=== PATIENT | female | born 1965 ===

== ENCOUNTER 2016-12-24 16:08 | Emergency (ER) | payer OTHER, MEDICAID ==
[2016-12-24 16:35] VITALS: BP 128/42; PULSE 65; RESP 16; TEMP 97.8; O2SAT 99
--- NOTE | 2016-12-24 16:54 | ED PDOC ---
HPI: Back Time Seen by Provider: 12/24/16 16:20 Chief Complaint (Nursing): Back Pain Chief Complaint (Provider): Low back pain after moving mattress at work last night History Per: Patient History/Exam Limitations: no limitations Onset/Duration Of Symptoms: Hrs Current Symptoms Are (Timing): Still Present Full Body Front + Back: 1 - Back pain Quality Of Discomfort: Dull Severity: Mild Pain Scale Rating Of: 2 Previous Symptoms: None Associated Symptoms: None Additional Complaint(s): Pt improved after aleve last night. PT states she was told my employer to be evaluated to return to work. Pt denies numbness/tingling. No bladder or bowel incontinence. Past Medical History Reviewed: Historical Data, Nursing Documentation, Vital Signs Vital Signs: Last Vital Signs Temp 97.8 F 12/24/16 16:30 Pulse 65 12/24/16 16:30 Resp 16 12/24/16 16:30 BP 128/42 L 12/24/16 16:30 Pulse Ox 99 12/24/16 16:30 - Medical History PMH: Gastritis, Rheumatoid Arthritis - Surgical History Surgical History: Appendectomy - Family History Family History: States: Unknown Family Hx - Living Arrangements Living Arrangements: With Family - Social History Current smoker - smoking cessation education provided: No Alcohol: None Drugs: Denies - Immunization History Hx Tetanus Toxoid Vaccination: No Hx Influenza Vaccination: Yes Hx Pneumococcal Vaccination: No - Home Medications Home Medications: Ambulatory Orders Medication Instructions Recorded Famotidine [Pepcid] 20 mg PO BID #20 tab 03/21/16 Naproxen [Anaprox] 275 mg PO DAILY PRN #20 tab 03/21/16 diaZEpam [Valium] 5 mg PO TID #21 tab 03/21/16 predniSONE [Prednisone] 20 mg PO BID #10 tab 03/21/16 - Allergies Allergies/Adverse Reactions: Allergies Allergy/AdvReac Type Severity Reaction Status Date / Time No Known Allergies Allergy Verified 12/24/16 16:30 Review of Systems ROS Statement: Except As Marked, All Systems Reviewed And Found Negative Constitutional: Negative for: Fever, Chills Genitourinary Female: Negative for: Dysuria, Pelvic Pain Musculoskeletal: Positive for: Back Pain Neurological: Negative for: Numbness Physical Exam - Reviewed Nursing Documentation Reviewed: Yes Vital Signs Reviewed: Yes - Physical Exam Appears: Positive for: Well, Non-toxic, No Acute Distress Head Exam: Positive for: ATRAUMATIC, NORMAL INSPECTION, NORMOCEPHALIC Skin: Positive for: Normal Color, Warm, DRY Eye Exam: Positive for: Normal appearance ENT: Positive for: Normal ENT Inspection Neck: Positive for: Normal, Painless ROM Respiratory: Negative for: Accessory Muscle Use, Respiratory Distress Back: Positive for: Normal Inspection Extremity: Positive for: Normal ROM Neurologic/Psych: Positive for: Alert, Oriented - ECG O2 Sat by Pulse Oximetry: 99 Disposition - Clinical Impression Clinical Impression: Back pain - Patient ED Disposition Is Patient to be Admitted: No Counseled Patient/Family Regarding: Diagnosis, Need For Followup - Disposition Disposition: Routine/Home Disposition Time: 17:32 Condition: GOOD Additional Instructions: Please follow-up with PMD for further evaluation if pain persists. Instructions: Back Pain (ED) Forms: [facility] ([place] Korean), [facility] School/Work Excuse Print Language: ESTONIAN
--- NOTE | 2016-12-24 18:11 | RAD ---
PROCEDURE: Radiographs of the Lumbar Spine. HISTORY: back pain after lifting mattress at work COMPARISON: No prior. FINDINGS: BONES: Normal alignment. No listhesis. No fracture. DISC SPACES: Borderline multilevel spondylosis. OTHER FINDINGS: None. 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 Further characterization can be provided by MRI if clinically warranted.
== END 2016-12-24 17:40 | disposition home or self-care (01) ==
LOC: H.ER 16:08
DX: M54.5 Low back pain (principal); X50.9XXA Other and unspecified overexertion or strenuous movements or postures, initial encounter; Y99.0 Civilian activity done for income or pay; M06.9 Rheumatoid arthritis, unspecified